=== PATIENT | male | born 1945 | race Caucasian/White ===

== ENCOUNTER 2017-06-08 10:42 | Emergency (ER) | payer MEDICARE, OTHER ==
[~2017-06-08] VITALS: Ht 170.2 cm; Wt 84.0 kg
[~2017-06-08 10:42] MED LIST: AMOX875 PO; ASPI81TA82 PO; ATOR20TA42 PO; CO Q200C3 PO
[2017-06-08 10:50] VITALS: BP 134/64; PULSE 81; RESP 16; TEMP 100.9; O2SAT 96
[2017-06-08] MEDS ORDERED: ROSU10 PO (11:00)
--- NOTE | 2017-06-08 11:30 | RADRPT ---
EXAM DATE/TIME: 06/08/2017 11:18 [place] COMPARISON: No previous studies available for comparison. INDICATIONS : Fever, cough MEDICAL HISTORY : None. SURGICAL HISTORY : None. ENCOUNTER: Initial ACUITY: 1 week PAIN SCORE: 0/10 LOCATION: Bilateral chest FINDINGS: PA and lateral views of the chest demonstrate the lungs to be symmetrically aerated without evidence of mass, infiltrate or effusion. The cardiomediastinal contours are unremarkable. Degenerative julien es are noted throughout the thoracic spine. CONCLUSION: No acute disease. Sohail Fonseca MD on June 08, 2017 at 11:27 Board Certified Radiologist. This report was verified electronically.
[2017-06-08] MEDS ORDERED: PROM6.256 PO (11:44)
[2017-06-08] MEDS ORDERED: AZIT250T3 PO (11:44)
--- NOTE | 2017-06-08 11:45 | PD ---
HPI Chief Complaint: Cold / Flu Symptoms Time Seen by Provider: 10:59 Travel History International Travel<30 days: No Contact w/Intl Traveler<30days: No Traveled to known affect area: No History of Present Illness HPI This is a 71-year-old male who presents to the emergency department with productive cough for 2 weeks with yellow sputum, worsening over the past 3 days , constant, moderate severity associated with nasal congestion and some frontal headache. He started to have a fever yesterday which concerned him and brought him to the emergency room. His has been battling similar symptoms. He did not get his flu shot this year. He does have a remote smoking history. PFSH Past Medical History Cancer: Yes (SKIN) High Cholesterol: Yes Diabetes: No Diminished Hearing: No Integumentary: Yes ("LOTS OF BASAL SKIN CANCER" MULTIPLE REMOVALS) Shingles: Yes (?) Tetanus Vaccination: Unknown Past Surgical History Tonsillectomy: Yes Other Surgery: Yes (06/15/08 SKIN CANCER REMOVED FROM L.SHOULDER) Social History Alcohol Use: Yes ("4 BEERS A DAY" APPROXIMATELY) Tobacco Use: No (QUIT 1970) Substance Use: No Allergies-Medications (Allergen,Severity, Reaction): Coded Allergies: No Known Allergies (Verified Adverse Reaction, Unknown, 06/08/17) Reported Meds & Prescriptions Reported Meds & Active Scripts Active Reported Crestor (Rosuvastatin Calcium) 10 Mg Tab 10 Mg PO DAILY Review of Systems Except as stated in HPI: all other systems reviewed are Neg Physical Exam Narrative GENERAL:Well appearing, no acute distress SKIN: Focused skin assessment warm and dry. HEAD: Atraumatic. Normocephalic. EYES: Pupils equal and round. No injection or drainage. ENT: Moist mucous membranes. Nasal congestion. Mild posterior pharyngeal erythema along the right tonsil with no exudates. NECK: Trachea midline. CARDIOVASCULAR: Regular rate and rhythm. No murmur appreciated. RESPIRATORY: Clear to auscultation. Breath sounds equal bilaterally. GASTROINTESTINAL: Abdomen soft, non-tender, nondistended. MUSCULOSKELETAL: No obvious deformities. NEUROLOGICAL: Awake and alert. No obvious cranial nerve deficits. Moving all extremities. PSYCHIATRIC: Appropriate mood and affect; insight and judgment normal. Data Data Last Documented VS Vital Signs Date Time Temp Pulse Resp B/P (MAP) Pulse Ox O2 Delivery O2 Flow Rate FiO2 06/08/17 10:58 16 96 Room Air 06/08/17 10:50 100.9 81 134/64 (87) Orders Orders Chest, Pa & Lat (06/08/17 ) Influenzae A/B Antigen (06/08/17 11:08) MDM Medical Decision Making Medical Screen Exam Complete: Yes Emergency Medical Condition: Yes Differential Diagnosis Viral syndrome, influenza, pneumonia, bronchitis Narrative Course This is a 71-year-old male who presents to the emergency department with a productive cough with yellow sputum. He does have a temperature 100.9 but otherwise is not hypoxic and appears nontoxic and very well. Influenza was negative. Patient will be treated empirically with azithromycin for bronchitis given duration of symptoms. Otherwise I think he is appropriate for outpatient management. Diagnosis Primary Impression: Bronchitis Patient Instructions: General Instructions Additional Instructions: If you develop severe chest pain, shortness of breath, sweating, lightheadedness , dizziness or difficulty breathing return to the emergency department immediately. Followup with your primary care physician in 2-3 days if your symptoms are not resolved. Med/Other Pt SpecificInfo: Prescription(s) given Scripts Promethazine-Codeine Liq (Promethazine-Codeine Liq) 6.25-10 Mg/5 Ml Syrp 5-10 ML PO Q6H Y for COUGH AND/OR COLD SYMPTOMS, #60 ML 0 Refills Prov: Manuela Sanchez MD 06/08/17 Azithromycin (Azithromycin) 250 Mg Tab 250 MG PO DIRECTED for Infection, #6 TAB 0 Refills Take 2 tabs (500 mg) on day 1 then 1 tab daily x 4 days. Prov: Manuela Sanchez MD 06/08/17 Disposition: 01 DISCHARGE HOME Condition: Stable Manuela Sanchez MD Jun 08, 2017 11:44
== END 2017-06-08 12:03 | disposition home or self-care (01) ==
LOC: PHED 10:42
DX: J40 Bronchitis, not specified as acute or chronic (principal); E78.00 Pure hypercholesterolemia, unspecified
CPT/HCPCS: 71046; 87804; 99284